=== PATIENT | female | born 1975 | race Caucasian/White ===

== ENCOUNTER → 2023-04-19 13:00 | Outpatient (CLI) | payer SELFPAY ==
--- NOTE | 2023-04-19 13:15 | DI.RAD.S_ITS ---
PROCEDURE: XR ANKLE LT MIN 3V INDICATIONS: left ankle pain TECHNIQUE: 3 views of the ankle were acquired. COMPARISON: None. FINDINGS: Bones: No fractures or dislocations. Ankle mortise is normally aligned. No suspicious bony lesions. Soft tissues: No tibiotalar joint effusion. Small Achilles enthesophyte. IMPRESSION: No fracture. No acute osseous lesion. If symptoms and/or clinical suspicion for pathology persists, further assessment with repeat radiographs (7-10 days) or advanced imaging (e.g. CT, MRI or bone scan) should be considered. Dictated by: Magda Ortega MD, PhD on 04/19/2023 at 13:37 Approved by: Magda Ortega MD, PhD on 04/19/2023 at 13:37
== END ==
LOC: RAD 13:12
PROVIDERS: Referring Provider Physician Assistant; Visit Provider Physician Assistant
DX: M25.572 Pain in left ankle and joints of left foot (principal)
CPT/HCPCS: 73610

== ENCOUNTER 2024-10-30 09:48 | Emergency (ER) | payer SELFPAY ==
[2024-10-30] VITALS (9 sets, daily range): BP systolic 112–177; BP diastolic 64–96; PULSE 70–92; RESP 14; TEMP 37.1; O2SAT 97–100; BMI 22.4
[2024-10-30 10:41] LABS: Add Manual Diff / Slide Review NO; Basophils Absolute Auto 0 /uL (0-100); Basophils Percent Auto 0.9 % (0-2); Eosinophils Absolute Auto 100 /uL (0-450); Hematocrit 33.5 % (36-46); Hemoglobin 10.6 g/dL (12.0-16.0); Lymphocytes Absolute Auto 1200 /uL (1100-4500); Lymphocytes Percent Auto 25.3 % (25-40); Mean Corpuscular HGB Conc 31.7 % (30-36); Mean Corpuscular Hemoglobin 25.2 PG (26-34); Mean Corpuscular Volume 79.6 fL (80-100); Monocytes Absolute Auto 300 /uL (0-900); Monocytes Percent Auto 7.3 % (3-14); Neutrophils Absolute Auto 3100 /uL (1500-7000); Neutrophils Percent Auto 64.5 % (50-75); Platelet Count 311 X10^3/uL (150-400); Red Blood Cell Count 4.21 X10^6/uL (4.0-5.2); Red Cell Distribution Width 23.1 % (11.6-14.8); White Blood Cell Count 4.8 X10^3/uL (4.5-11.0)
[2024-10-30 10:55] LABS: BUN Creatinine Ratio 11.5 (6-22); Blood Urea Nitrogen 11 mg/dL (7-17); Calcium 9.2 mg/dL (8.4-10.2); Carbon Dioxide 29 mmol/L (22-32); Chloride 104 mmol/L (98-107); Estimated Glomerular Filt Rate > 60 mL/min (>60); Glucose 93 mg/dL (70-100); HEMOLYSIS < 15 (0-50); Potassium 4.5 mmol/L (3.4-5.1); Sodium 137 mmol/L (137-145)
--- NOTE | 2024-10-30 11:23 | PC.NURSE ---
Pt states that he menstraul periods are getting heavier as she gets older. This one she is also having dizziness. Going through a tampon almost 2 every hour with large clots.
[2024-10-30 11:28] LABS: Anisocytosis 1+
--- NOTE | 2024-10-30 11:48 | ED_ITS ---
HPI - Female Genitourinary <Patricia Jones PA-C - Last Filed: 10/30/24 15:46> General Chief complaint: Vaginal Bleeding Stated complaint: vaginal bleeding, dizziness, blurry vision Time Seen by Provider: 10/30/24 11:47 Source: patient Mode of arrival: Ambulatory History of Present Illness HPI Narrative: Ms. Lee is a very pleasant 49-year-old female with a past medical history of anemia, heavy menstrual periods, IUD placed 20 years ago who presents to the emergency department for heavy vaginal bleeding x2 weeks with subsequent lightheadedness today. Patient states she has not seen a doctor in 20 years. Reports that every month she has a heavy period lasting about 2 weeks. States that this morning when she went to the bathroom she passed a large amount of blood and clots into the toilet which made her feel lightheaded. She occasionally has some cramping pain which is not present at this time. No lightheadedness at this time. She has in a monogamous relationship with a male partner. Not concerned for STDs. Denies abnormal vaginal discharge, vaginal pain, pain with intercourse, nausea, vomiting, diarrhea, constipation, fevers, chills. She does not take any prescription medications. States that when her. It is heavier she has to change a pad every 3 hours. Reports that she had an IUD placed 20 years ago but she does not remember what type of IUD was. Admits to cigarette smoking and frequent alcohol use, denies other drug use. Related Data Allergies Allergy/AdvReac Type Severity Reaction Status Date / Time No Known Drug Allergies Allergy Verified 10/30/24 10:04 Review of Systems <Patricia Jones PA-C - Last Filed: 10/30/24 15:46> Review of Systems ROS Unobtainable: All systems reviewed & are unremarkable except as noted in HPI and below Exam <Patricia Jones PA-C - Last Filed: 10/30/24 15:46> Narrative Exam Narrative: GENERAL: 49 year old patient appears stated age. Well-developed patient, in no acute distress. HEAD: Atraumatic. Normocephalic. EYES: Extraocular motions intact. No scleral icterus. No injection or drainage. CARDIOVASCULAR: Regular rate and rhythm. RESPIRATORY: ?Nonlabored respirations. ?Speaking in clear, full sentences. ?Clear to auscultation. Breath sounds equal bilaterally. No wheezes, rales, or rhonchi. ? GASTROINTESTINAL: Abdomen soft, non-tender, nondistended. Normal bowel sounds. PELVIC: Patient gave verbal consent for pelvic exam. Nurse Mitra chaperoned exam. Patient had no abnormal external lesions. She had no pain on speculum or bimanual examination. Proximally to large swabs of blood present in vaginal vault, no return of bleeding with bearing down. Patient has approximately 2.5 cm of IUD string outside of the cervical os. No abnormal discharge. No adnexal tenderness. EXTREMITIES: No edema or joint tenderness. NEURO: AOx3. ?Clear speech. ?Moves all 4 extremities appropriately. SKIN: No rash or erythema of visible areas Initial Vital Signs Initial Vital Signs: Vital Signs Temperature 98.7 F 10/30/24 10:04 Pulse Rate 92 H 10/30/24 10:04 Respiratory Rate 14 10/30/24 10:04 Blood Pressure 151/68 H 10/30/24 10:04 Pulse Oximetry 100 10/30/24 10:04 Oxygen Delivery Method Room Air 10/30/24 10:04 <Joseluis Singh MD - Last Filed: 10/30/24 20:41> Initial Vital Signs Initial Vital Signs: Vital Signs Temperature 98.7 F 10/30/24 10:04 Pulse Rate 92 H 10/30/24 10:04 Respiratory Rate 14 10/30/24 10:04 Blood Pressure 151/68 H 10/30/24 10:04 Pulse Oximetry 100 10/30/24 10:04 Oxygen Delivery Method Room Air 10/30/24 10:04 Course <Patricia Jones PA-C - Last Filed: 10/30/24 15:46> Orders Ordered: ED Orders 10/30/24 11:46 Urine Culture Stat Urine Microscopic Stat 10/30/24 11:59 US pelvic complete Stat 10/30/24 13:14 Chlamydia/Gonoc/Myco Genital Stat Wet Prep Tric BV Lyla Stat Discontinued Medications Sodium Chloride (Normal Saline 0.9%) 1,000 mls @ 1,000 mls/hr IV BOLUS ONE Stop: 10/30/24 12:58 Last Infusion: 10/30/24 14:20 Dose: Infused Documented By: Admin: 10/30/24 12:15 Dose: 1,000 mls/hr Documented By: AB Vital Signs Vital signs: Vital Signs - 8 hr 10/30/24 13:37 10/30/24 13:38 10/30/24 13:38 Pulse Rate 70 71 Blood Pressure 126/68 Pulse Oximetry 98 98 Oxygen Delivery Method 10/30/24 14:00 10/30/24 14:00 10/30/24 14:30 Pulse Rate 79 71 Blood Pressure 112/80 Pulse Oximetry 97 97 Oxygen Delivery Method Room Air Room Air 10/30/24 14:30 10/30/24 15:00 10/30/24 15:00 Pulse Rate 76 Blood Pressure 121/81 135/84 Pulse Oximetry 97 Oxygen Delivery Method 10/30/24 15:30 10/30/24 15:30 Pulse Rate 77 Blood Pressure 177/96 H Pulse Oximetry 97 Oxygen Delivery Method Room Air <Joseluis Singh MD - Last Filed: 10/30/24 20:41> Orders Ordered: ED Orders 10/30/24 11:46 Urine Culture Stat Urine Microscopic Stat 10/30/24 11:59 US pelvic complete Stat 10/30/24 13:14 Chlamydia/Gonoc/Myco Genital Stat Wet Prep Tric BV Lyla Stat Discontinued Medications Sodium Chloride (Normal Saline 0.9%) 1,000 mls @ 1,000 mls/hr IV BOLUS ONE Stop: 10/30/24 12:58 Last Infusion: 10/30/24 14:20 Dose: Infused Documented By: Admin: 10/30/24 12:15 Dose: 1,000 mls/hr Documented By: AB Vital Signs Vital signs: Vital Signs - 8 hr 10/30/24 13:37 10/30/24 13:38 10/30/24 13:38 Pulse Rate 70 71 Blood Pressure 126/68 Pulse Oximetry 98 98 Oxygen Delivery Method 10/30/24 14:00 10/30/24 14:00 10/30/24 14:30 Pulse Rate 79 71 Blood Pressure 112/80 Pulse Oximetry 97 97 Oxygen Delivery Method Room Air Room Air 10/30/24 14:30 10/30/24 15:00 10/30/24 15:00 Pulse Rate 76 Blood Pressure 121/81 135/84 Pulse Oximetry 97 Oxygen Delivery Method 10/30/24 15:30 10/30/24 15:30 Pulse Rate 77 Blood Pressure 177/96 H Pulse Oximetry 97 Oxygen Delivery Method Room Air MDM - Female Genitourinary <Patricia Jones PA-C - Last Filed: 10/30/24 15:46> Medical Records Attestation: I reviewed the patient's medical records. Lab Data 10/30/24 10:27 10/30/24 10:27 Labs: Lab Results 10/30/24 10/30/24 Range/Units 10:27 11:46 WBC 4.8 (4.5-11.0) X10^3/uL RBC 4.21 (4.0-5.2) X10^6/uL Hgb 10.6 L (12.0-16.0) g/dL Hct 33.5 L (36-46) % MCV 79.6 L (80-100) fL MCH 25.2 L (26-34) PG MCHC 31.7 (30-36) % RDW 23.1 H (11.6-14.8) % Plt Count 311 (150-400) X10^3/uL Neut % (Auto) 64.5 (50-75) % Lymph % (Auto) 25.3 (25-40) % [place] % (Auto) 7.3 (3-14) % Eos % (Auto) 2.0 (2-4) % Baso % (Auto) 0.9 (0-2) % Neut # (Auto) 3100 (7707-6937) /uL Lymph # (Auto) 1200 (4625-2660) /uL [place] # (Auto) 300 (0-900) /uL Eos # (Auto) 100 (0-450) /uL Baso # (Auto) 0 (0-100) /uL RBC Morphology See below Anisocytosis 1+ H Sodium 137 (137-145) mmol/L Potassium 4.5 (3.4-5.1) mmol/L Chloride 104 (98-107) mmol/L Carbon Dioxide 29 (22-32) mmol/L BUN 11 (7-17) mg/dL Creatinine 0.96 (0.52-1.04) mg/dL Estimated GFR > 60 (>60) mL/min BUN/Creatinine Ratio 11.5 (6-22) Glucose 93 (70-100) mg/dL Calcium 9.2 (8.4-10.2) mg/dL Urine RBC 1-5/hpf (0-5/HPF) Urine WBC 1-5/hpf (0-5/HPF) Ur Squamous Epith Cells 1-5 /hpf (0-5/HPF) Urine Bacteria Occasional (0-1) (None) Ur Culture Indicated? TNP Vol Urine Centrifuged 10ml (spun) Blood Type O Positive Antibody Screen Negative Point of Care Testing Test Results Negative Urine Dip Bedside Urine Glucose Negative Bedside Urine Bilirubin - Negative Bedside Urine Ketone - Negative Urine Specific [place] 1.000 Bedside Urine Occult Blood +++ Bedside Urine pH 7.0 Bedside Urine Protein - Negative Bedside Urine Urobilinogen - Negative Bedside Urine Nitrite - Negative Bedside Urine Leukocytes - Negative Esterase MDM Narrative Medical decision making narrative: 49-year-old female with a past medical history of anemia, heavy menstrual periods, IUD placed 20 years ago who presents to the emergency department for heavy vaginal bleeding x2 weeks with subsequent lightheadedness today. She is with her boyfriend who contributes to the history. Differential diagnosis includes but is not limited to abnormal uterine bleeding, dysmenorrhea, anemia, uterine fibroids, ovarian cyst, displaced IUD, cervicitis, endometritis, decidual cast, , miscarriage, perimenopause, etc. On exam the patient is in no acute distress, nontoxic-appearing, all vital signs within normal limits. She has not tachycardic. Abdomen soft and nontender. We will obtain abdominal labs and pelvic ultrasound. She denies need for pain medication at this time however we will treat with IV fluids. We will perform pelvic examination to quantify bleeding and obtain swabs for infection. HCG neg. Labs reveal hemoglobin 10.6, hematocrit 33.5, RDW 23.1 consistent with microcytic anemia. Platelets 311. Normal WBC 4.8. CMP within normal limits, normal renal function and electrolytes. Glucose 93. UA with signs of contamination however no infection. Pelvic ultrasound reveals various abnormalities including low intrauterine device, cervical polyp, endometrial polyp, endometrial thickened, 1.5 cm left ovarian lesion. At 1513 I called OBGYN on-call Dr. Fernandez and discussed the case. Because patient is hemodynamically stable and pelvic exam is not concerning for large quantities of active bleeding, she is appropriate for outpatient follow up with Dr. Fernandez for further evaluation of abnormalities. At this time we will not start patient on exogenous hormones. I will send Dr. Fernandez patient information and office staff will plan to call her /Tuesday. Discussed all results with patient and provided her with a printed copy of her pelvic ultrasound. She verbalized understanding of all information and is agreeable to prompt follow up with OBGYN. Discussed hydration, [id number] iron supplementation, ibuprofen every 6-8 hours for pain/bleeding. We discussed strict ER return precautions. Patient is agreeable to the plan and stable for discharge at this time. <Joseluis Singh MD - Last Filed: 10/30/24 20:41> Lab Data Labs: Lab Results 10/30/24 10/30/24 Range/Units 10:27 11:46 WBC 4.8 (4.5-11.0) X10^3/uL RBC 4.21 (4.0-5.2) X10^6/uL Hgb 10.6 L (12.0-16.0) g/dL Hct 33.5 L (36-46) % MCV 79.6 L (80-100) fL MCH 25.2 L (26-34) PG MCHC 31.7 (30-36) % RDW 23.1 H (11.6-14.8) % Plt Count 311 (150-400) X10^3/uL Neut % (Auto) 64.5 (50-75) % Lymph % (Auto) 25.3 (25-40) % [place] % (Auto) 7.3 (3-14) % Eos % (Auto) 2.0 (2-4) % Baso % (Auto) 0.9 (0-2) % Neut # (Auto) 3100 (7866-6107) /uL Lymph # (Auto) 1200 (0891-8734) /uL [place] # (Auto) 300 (0-900) /uL Eos # (Auto) 100 (0-450) /uL Baso # (Auto) 0 (0-100) /uL RBC Morphology See below Anisocytosis 1+ H Sodium 137 (137-145) mmol/L Potassium 4.5 (3.4-5.1) mmol/L Chloride 104 (98-107) mmol/L Carbon Dioxide 29 (22-32) mmol/L BUN 11 (7-17) mg/dL Creatinine 0.96 (0.52-1.04) mg/dL Estimated GFR > 60 (>60) mL/min BUN/Creatinine Ratio 11.5 (6-22) Glucose 93 (70-100) mg/dL Calcium 9.2 (8.4-10.2) mg/dL Urine RBC 1-5/hpf (0-5/HPF) Urine WBC 1-5/hpf (0-5/HPF) Ur Squamous Epith Cells 1-5 /hpf (0-5/HPF) Urine Bacteria Occasional (0-1) (None) Ur Culture Indicated? TNP Vol Urine Centrifuged 10ml (spun) Blood Type O Positive Antibody Screen Negative Point of Care Testing Test Results Negative Urine Dip Bedside Urine Glucose Negative Bedside Urine Bilirubin - Negative Bedside Urine Ketone - Negative Urine Specific [place] 1.000 Bedside Urine Occult Blood +++ Bedside Urine pH 7.0 Bedside Urine Protein - Negative Bedside Urine Urobilinogen - Negative Bedside Urine Nitrite - Negative Bedside Urine Leukocytes - Negative Esterase Discharge Plan Departure Patient Disposition: Home Clinical Impression: Vaginal bleeding, Microcytic anemia, Cervical polyp, Endometrial polyp, Thickened endometrium, Lesion of left ovary Instructions: DI for Menorrhagia Activity Restrictions/Additional Instructions: Dear Jesus, Today you were evaluated for heavy vaginal bleeding. Lab work showed mild anemia with a hemoglobin of 10.6. Pelvic ultrasound revealed a cervical polyp, and endometrial polyp, a thickened endometrium, and a left ovarian lesion. I consulted our OBGYN Dr. Fernandez. It is very important that you call Dr. Fernandez's office on for follow up. You can call [address] at [phone], however you may also receive a call from them on or Tuesday. In the meantime, please hydrate, take ibuprofen every 6-8 hours to help with pain or bleeding, increase iron in your diet or take an [id number] iron supplement. Return to the ER if you develop any new or worsening symptoms such as heavy bleeding (soaking a pad every hour or less), shortness of breath, lightheadedness, dizziness, any other concerns. Please follow up with your primary care doctor within the next 2-3 days for ER follow-up. (If you do not have a PCP you can call [phone]. ?to schedule an appointment with an [facility] Primary Care Provider) IF YOU DEVELOP ANY NEW OR WORSENING SYMPTOMS, RETURN TO THE ER! Please read the attached instructions, they highlight more specific treatments and interventions for you at home. Thank you for letting me participate in your care, Patricia Jones PA-C Referrals: Miscellaneous,Doctor, [Primary Care Provider] - Rey Fernandez MD [Physician] - (Heavy menstrual bleeding with left ovarian lesion, cervical polyp, endometrial polyp, thickened endometrium) Stand Alone Forms: Patient Portal/API/Survey ED Sign-out <Joseluis Singh MD - Last Filed: 10/30/24 20:41> Sign Out Provider Sign Out Attestation: I was immediately available in the department for consultation. This documentation has been reviewed and I agree with assessment and plan. Supervised by Joseluis Singh MD
--- NOTE | 2024-10-30 11:59 | DI.US.S_ITS ---
PROCEDURE: US PELVIC COMPLETE INDICATIONS: heavy bleeding x 2 weeks; iud x 20 years TECHNIQUE: Real-time scanning was performed of the pelvic organs, with image documentation. Additional endovaginal scanning was necessary due to incomplete visualization of the adnexal and endometrial structures by transabdominal scanning. COMPARISON: None. FINDINGS: Uterus: Uterus is anteverted and normal in size at 8.9 x 4.9 x 5.7 cm. The myometrium is heterogeneous. The endometrium measures 17.2 mm combined thickness. Possible endometrial polyp measuring 2.4 x 0.9 x 1.9 centimeters with vascularity. Intrauterine device approximately 1.3 centimeters from the external cervical os. There is a 1.4 x 1.2 x 1.4 centimeter solid nonvascular nodule along the left external cervical os. Ovaries: The right ovary measures 2.8 x 1.8 x 2.0 cm, with a calculated ovarian volume of 5.0 cc. The left ovary measures 4.3 x 2.4 x 2.9 cm, with a calculated ovarian volume of 15.2 cc. Solid hyperechoic lesion in the left ovary measuring 1.3 x 1.5 x 1.4 centimeters with vascularity. Less than 12 follicles can be seen in each ovary. No adnexal masses are seen. Other: No pathologic free abdominal or pelvic fluid. IMPRESSION: Intrauterine device is low, approximately 1.3 centimeters from the external cervical os. There is a solid nonvascular possible polyp along the left external cervical os measuring 1.4 centimeters. Likely endometrial polyp measuring 2.4 centimeters. The endometrium is thickened measuring 17.2 millimeters. There is a 1.5 centimeter mildly hyperechoic left ovarian lesion. Nonspecific and attention on follow-up is recommended. Recommend gynecology consultation. We strive to produce accurate, complete, and clear reports of imaging services. To assist us in improving patient care, this report was composed using standard report templates and voice recognition software. Therefore, it may contain abnormal punctuation, insertions and/or omissions. Occasional wrong-word or sound-alike substitutions may occur. Though we review the report and make efforts to correct it, we do recommend that the report be read carefully in proper context to recognize any text inaccuracies. Dictated by: Arturo Del Castillo M.D. on 10/30/2024 at 14:09 Approved by: Arturo Del Castillo M.D. on 10/30/2024 at 14:15
[2024-10-30 12:04] LABS: Bacteria Urine Occasional (0-1); RBC Urine 1-5/HPF (0-5/HPF); Squamous Epithelial Cell Urine 1-5 /HPF (0-5/HPF); Urine Volume 10mL (spun); WBC Urine 1-5/HPF (0-5/HPF)
[2024-10-30] MEDS: SODIUM CHLORIDE 0.9% 1,000 ML 1000 ML IV (12:15)
[2024-11-02 14:10] LABS: Chlamydia trachomatis Negative (Negative); Mycoplasma genitalium Negative (Negative); Neisseria gonorrhoeae Negative (Negative)
== END 2024-10-30 15:55 | disposition home or self-care (01) ==
PROVIDERS: Emergency Medicine; Emergency Provider Physician Assistant
DX: N93.9 Abnormal uterine and vaginal bleeding, unspecified (principal); D50.9 Iron deficiency anemia, unspecified; N84.0 Polyp of corpus uteri; N84.1 Polyp of cervix uteri; N83.8 Other noninflammatory disorders of ovary, fallopian tube and broad ligament; F17.210 Nicotine dependence, cigarettes, uncomplicated; R93.89 Abnormal findings on diagnostic imaging of other specified body structures
CPT/HCPCS: 76856; 80048; 81003; 81015; 81025; 85025; 86850; 86900; 86901; 87086; 87210; 87491; 87563; 87591; 96360; 96361; 99283; 99284